=== PATIENT | female | born 1950 | race Caucasian/White ===

== ENCOUNTER 2017-06-06 17:21 | Emergency (ER) | payer MEDICARE, MEDICAID ==
[2017-06-06 19:14] LABS: HEMATOCRIT 30.4 % (41.0-60); LYMPHOCYTE ABSOLUTE 0.4 Th/cmm (1.5-3.0); MEAN CORPUSCULAR HEMOGLOBIN 32.6 pg (27.0-31.0); MONOCYTE ABSOLUTE 1.1 Th/cmm (0.3-1.0); NEUTROPHILE ABSOLUTE 3.8 Th/cmm (1.8-8.0); PLATELET COUNT 139 Th/cmm (150-400); RED BLOOD COUNT 3.07 Mil/cmm (3.80-5.20); RED CELL DISTRIBUTION WIDTH 28.6 % (11.5-20.0); WHITE BLOOD COUNT 5.3 Th/cmm (4.8-10.8)
--- NOTE | 2017-06-06 19:20 | ED Physician Chart ---
ED Chief Complaint/HPI - Patient Information Date Seen:: 06/06/17 Time Seen:: 19:15 Chief Complaint:: Ascites History of Present Illness:: 67 yo female was brought in from a SNF for paracentesis. The patient had ascites due to HCV and liver cirrhosis. The patient's PCP did not have privileges here and instructed the patient to come to ER and return to SNF after the paracentesis. The patient was awake and alert. She had notably jaundice. The patient's son stated that the patient was a candidate for liver transplant and was under the care by a liver specialist. Allergies:: Allergies Allergy/AdvReac Type Severity Reaction Status Date / Time No Known Allergies Allergy Verified 06/06/17 17:41 Vitals:: Vital Signs - 8 hr 06/06/17 17:41 Temp 97.5 F HR 86 RR 16 BP 113/67 O2 Sat % 98 ED Review of Systems - Review of Systems General/Constitutional: No fever, No chills, Weakness Skin: No bruising, Other (jaundice) Head: No headache Eyes: No loss of vision Neck: No neck pain Cardio Vascular: No chest pain, edema Pulmonary: SOB GI: Other (Significant abdominal distention) Musculoskeletal: No bone or joint pain ED Past Medical History - Past Medical History Past Medical History: ESRD, Other (HCV, dental caries) Social History: Smoker, No Alcohol, Illicit Drug Use (marijuana) Surgical History: Cholecystectomy, Family Medical History - Family Member Mother History Unknown: Yes ED Physical Exam - Physical Examination General/Constitutional: Awake, Alert Head: Atraumatic Eyes: PERRL, EOMI Other Eyes comments:: conjunctiva jaundice Other Skin comments:: jaundice Neck: No nuchal rigidity Respiratory: Clear to Auscultation, No Wheeze/Rhonchi/Rales Cardio Vascular: RRR, No murmur, gallop, rubs, NL S1 S2 Other GI comments:: severe abdominal distention Extremities: normal strength in all extremities Neuro/Psych: No focal deficits ED Assessment - Assessment General Assessment: Ascites Critical Care Time: 30 min Excludes all billable procedures: Yes This condition life threatening/high prob of deterioration: No - Procedures Procedures:: Paracentesis at LLQ, 6L fluid removed. Patient tolerated the procedure well. Informed Consent: Procedure/risk/benefits explained by MD: Yes ED Septic Shock - . Is Septic Shock (SBP<90, OR Lactate>4 mmol\L) present?: No - <6hrs of presentation: Vital Signs: Vital Signs - 8 hr 06/06/ 17:41 Temp 97.5 F HR 86 RR 16 BP 113/67 O2 Sat % 98 ED Reassessment (Disposition) - Reassessment Reassessment Condition:: Improved - Aftercare/Follow up Instructions Aftercare/Follow-Up Instructions:: Counseled pt regarding lab results/diagnosis & need follow up, Refer to Discharge Instructions - Patient Disposition Discharge/Transfer:: Residential Care - SNF ED Discharge Plan - Patient Disposition Admit/Discharge/Transfer: Discharge/Transfered to SNF Condition at Disposition: Stable Instructions: Ascites Additional Instructions: AFTER CARE POST PARACENTESIS, FOLLOW UP WITH PRIMARY CARE DOCTOR, GO BACK TO EMERGENCY ROOM IF SYMPTOMS WORSEN.
[2017-06-06 19:26] LABS: INR 1.23 (0.5-1.4); PROTHROMBIN TIME (TEST) 12.9 SECONDS (9.5-11.5)
[2017-06-06 19:30] LABS: ALB/GLOB RATIO 0.5 (1.0-1.8); ALBUMIN 2.3 gm/dL (3.7-5.3); ALKALINE PHOSPHATASE 84 U/L (34-104); ANION GAP 8.9 (7.0-16.0); BILIRUBIN,TOTAL 2.3 mg/dL (0.3-1.0); BUN - UREA NITROGEN 32 mg/dL (7-25); CALCIUM SERUM 8.8 mg/dL (8.6-10.3); CHLORIDE 92 mEq/L (98-107); CREATININE - SERUM 0.9 mg/dL (0.6-1.2); GFR AFRICAN-AMERICAN > 60.0 ml/min (>90); GFR NON AFRICAN-AMERICAN > 60.0 ml/min; GLUCOSE 126 mg/dL (70-105); POTASSIUM SERUM 3.9 mEq/L (3.5-5.1); SGOT 26 U/L (13-39); SGPT/ALT 26 U/L (7-52); SODIUM SERUM 124 mEq/L (136-145); TOTAL PROTEIN,SERUM 7.3 gm/dL (6.0-8.3)
[2017-06-06] MEDS ORDERED: LIDOCAINE IV ONE (19:40)
[2017-06-06 19:42] LABS: LYMPHOCYTE 9 % (20-50); MONOCYTE 18 % (2-10); NEUTROPHILS 73 % (40-80); PLATELET ESTIMATE SLIGHT DECREASED (NORMAL)
--- NOTE | 2017-06-07 08:39 | Diagnostic Imaging Report ---
Ultrasound-guided paracentesis HISTORY: Ascites COMPARISON: None FINDINGS: Ultrasound guided paracentesis was performed by the primary physician Dr. Fuller. 6 L of alie-colored fluid was drained from the left lower quadrant. Please refer to procedural report for complete details. IMPRESSION: Ultrasound guided paracentesis as detailed above.
== END 2017-06-06 22:05 ==
LOC: ER 17:21
DX: R18.8 Other ascites (principal); N18.6 End stage renal disease; Z87.891 Personal history of nicotine dependence
CPT/HCPCS: 36415-UA; 76942-TC; 80053-TC; 82150-TC; 82945-TC; 83615-TC; 83690-TC; 83986-90; 84157-TC; 85007-TC; 85027-TC; 85610-TC; 89051-TC; 96375; 96376; Z7502

== ENCOUNTER 2017-06-17 12:48 | Inpatient (IN) | payer MEDICARE, MEDICAID ==
--- NOTE | 2017-06-17 13:50 | ED Physician Chart ---
ED Chief Complaint/HPI - Patient Information Date Seen:: 06/17/17 Time Seen:: 13:00 Chief Complaint:: Abdominal Pain History of Present Illness:: onset x 2 days of intermittent, crampy, diffuse abdominal pain and distention; pt denies H/As, S/T, neck pain, C/P, SOB, A/N/V/D/C, fever, chills, or urinary s /s Allergies:: Allergies Allergy/AdvReac Type Severity Reaction Status Date / Time No Known Allergies Allergy Verified 06/06/17 17:41 Vitals:: Vital Signs - 8 hr 06/17/17 12:59 Temp 97.8 F HR 95 RR 18 BP 100/52 O2 Sat % 97 Historian:: Patient, EMS Review:: Nurse's Note Reviewed, EMS run form Reviewed ED Review of Systems - Review of Systems General/Constitutional: No fever, No chills, No weight loss, No weakness, No diaphoresis, No edema, No loss of appetite Skin: No skin lesions, No rash, No bruising Head: No headache, No light-headedness Eyes: No loss of vision, No pain, No diplopia ENT: No earache, No nasal drainage, No sore throat, No tinnitus Neck: No neck pain, No swelling, No thyromegaly, No stiffness, No mass noted Cardio Vascular: No chest pain, No palpitations, No PND, No orthopnea, No edema Pulmonary: No SOB, No cough, No sputum, No wheezing GI: Nausea, Vomiting, Diarrhea, Pain, No melena, No hematochezia, No constipation, No hematemesis G/U: No dysuria, No frequency, No hematuria, No nacturia Parts Professional: No vaginal discharge, No abnormal vaginal bleed, No contraction Musculoskeletal: No bone or joint pain, No back pain, No muscle pain Endocrine: No polyuria, No polydipsia Psychiatric: No prior psych history, No depression, No anxiety, No suicidal ideation, No homicidal ideation, No auditory hallucination, No visual hallucination Hematopoietic: No bruising, No lymphadenopathy Allergic/Immuno: No urticaria, No angioedema Neurological: No syncope, No focal symptoms, No weakness, No paresthesia, No headache, No seizure, No dizziness, No confusion, No vertigo ED Past Medical History - Past Medical History Obtainable: Yes Past Medical History: PUD/GERD, Other (Cirrhosis; Hepatitis C) Family History: HTN Social History: Non Smoker, No Alcohol, No Drug Use, Single, Care Facility Surgical History: None Psychiatricy History: None Medication: Reviewed Family Medical History - Family Member Mother History Unknown: Yes ED Physical Exam - Physical Examination General/Constitutional: Awake, Well-developed, well-nourished, Alert, No distress, GCS 15, Non-toxic appearing, Ambulatory Head: Atraumatic Eyes: Lids, conjuctiva normal, PERRL, EOMI Skin: Nl inspection, No rash, No skin lesions, No ecchymosis, Well hydrated, No lymphadenopathy ENMT: External ears, nose nl, TM canals nl, Nasal exam nl, Lips, teeth, gums nl , Oropharynx nl, Tonsils nl Neck: Nontender, Full ROM w/o pain, No JVD, No nuchal rigidity, No bruit, No mass, No stridor Respiratory: Nl effort/Exclusion, Clear to Auscultation, No Wheeze/Rhonchi/Rales Cardio Vascular: RRR, No murmur, gallop, rubs, NL S1 S2, Carotid/Femoral/Distal pulses equal bilaterally GI: No tenderness/rebounding/guarding, No organomegaly, No hernia, Normal BS's, No mass/bruits, No McBurney tenderness Other GI comments:: + Distention 2ndary to Ascites : No CVA tenderness Extremities: No tenderness or effusion, Full ROM, normal strength in all extremities, No edema, Normal digits & nails Neuro/Psych: Alert/oriented, DTR's symmetric, Normal sensory exam, Normal motor strength, Judgement/insight normal, Mood normal, Normal gait, No focal deficits Misc: Normal back, No paraspinal tenderness ED Labs/Radiology/EKG Results - Lab Results Comments:: Na+: 119; BUN: 44; H/H: 9.5/27.8; U/A: + Pyuria - Radiology Results Comments:: U/S: + 3 liters of Ascites fluid - EKG Interpretations EKG Time:: 14:03 Rate & Rhythm: 69; NSR Comments:: non-specific st-t changes ED Septic Shock - . Is Septic Shock (SBP<90, OR Lactate>4 mmol\L) present?: No - <6hrs of presentation: Vital Signs: Vital Signs - 8 hr 06/17/17 12:59 Temp 97.8 F HR 95 RR 18 BP 100/52 O2 Sat % 97 ED Reassessment (Disposition) - Reassessment Reassessment Condition:: Improved - Diagnosis Diagnosis:: Cirrhosis; Ascites; Hyponatremia; Dehydration; UTI; Abdominal Pain - Aftercare/Follow up Instructions Aftercare/Follow-Up Instructions:: Counseled pt regarding lab results/diagnosis & need follow up, Counseled pt & family regarding lab results/diagnosis & need follow up - Patient Disposition Discharge/Transfer:: Acute Care w/in this hosp Accepting Physician:: Dr. Baker Time Called:: 1500 Time Responded:: 15:00 Admitted to:: Telemetry Spoke to:: Dr. Baker Admitting Medical Physician:: Dr. Baker Condition at Disposition:: Stable, Improved
[2017-06-17 14:10] LABS: % BASOPHILS 0.2 % (0.0-2.0); % EOSINOPHILS 0.7 % (0.0-5.0); % LYMPHOCYTES 8.8 % (20.0-50.0); % MONOCYTES 12.6 % (2.0-10.0); % NEUTROPHILS 77.7 % (40.0-80.0); EOSINOPHILE ABSOLUTE 0.1 Th/cmm (0.1-0.4); HEMATOCRIT 27.8 % (41.0-60); HEMOGLOBIN 9.5 gm/dL (12-16); LYMPHOCYTE ABSOLUTE 0.6 Th/cmm (1.5-3.0); MEAN CELL VOLUME 100.2 fl (81-100); MEAN CORPUSCULAR HEMOGLOBIN 34.2 pg (27.0-31.0); MEAN CORPUSCULAR HGB CONC 34.1 pg (28.0-36.0); MEAN PLATELET VOLUME 7.1 fl; MONOCYTE ABSOLUTE 0.9 Th/cmm (0.3-1.0); NEUTROPHILE ABSOLUTE 5.6 Th/cmm (1.8-8.0); PLATELET COUNT 159 Th/cmm (150-400); RED BLOOD COUNT 2.78 Mil/cmm (3.80-5.20); RED CELL DISTRIBUTION WIDTH 23.9 % (11.5-20.0)
[2017-06-17 14:12] LABS: WHITE BLOOD COUNT 7.2 Th/cmm (4.8-10.8)
[2017-06-17 14:18] LABS: INR 1.37 (0.5-1.4); PROTHROMBIN TIME (TEST) 14.5 SECONDS (9.5-11.5)
[2017-06-17 14:23] LABS: ALB/GLOB RATIO 0.5 (1.0-1.8); ALBUMIN 2.1 gm/dL (3.7-5.3); ALKALINE PHOSPHATASE 85 U/L (34-104); ANION GAP 8.3 (7.0-16.0); BILIRUBIN,TOTAL 2.1 mg/dL (0.3-1.0); BUN - UREA NITROGEN 44 mg/dL (7-25); CALCIUM SERUM 8.1 mg/dL (8.6-10.3); CARBON DIOXIDE 27.3 mEq/L (21.0-31.0); CHLORIDE 88 mEq/L (98-107); CHOLESTEROL 105 mg/dL (<200); CREATININE KINASE 77 U/L (30-223); GFR AFRICAN-AMERICAN > 60.0 ml/min (>90); GFR NON AFRICAN-AMERICAN 58.6 ml/min; GLUCOSE 129 mg/dL (70-105); HDL -HIGH DENSITY LIPOPROTEIN 38 mg/dL (23-92); POTASSIUM SERUM 4.6 mEq/L (3.5-5.1); SGOT 38 U/L (13-39); SGPT/ALT 27 U/L (7-52); TOTAL PROTEIN,SERUM 6.8 gm/dL (6.0-8.3); TRIGLYCERIDES 50 mg/dL (<150)
[2017-06-17 14:38] LABS: SODIUM SERUM 119 mEq/L (136-145)
[2017-06-17 14:46] LABS: URINE MICROSCOPIC INDICATED? YES; URINE SOURCE CLEAN C
[2017-06-17 14:51] LABS: URINE BILIRUBIN NEGATIVE (NEGATIVE); URINE BLOOD MODERATE (NEGATIVE); URINE GLUCOSE (UA) NEGATIVE (NEGATIVE); URINE KETONE NEGATIVE (NEGATIVE); URINE LEUKOCYTE ESTERASE NEGATIVE (NEGATIVE); URINE NITRATE NEGATIVE (NEGATIVE); URINE PROTEIN NEGATIVE (NEGATIVE); URINE UROBILINOGEN 0.2 E.U./dL (0.2 - 1.0)
[2017-06-17 14:52] LABS: URINE COLOR ORANGE
[2017-06-17 14:53] LABS: URINE CLARITY HAZY (CLEAR)
[2017-06-17 14:59] LABS: URINE BACTERIA 1+ /hpf (NONE SEEN); URINE EPITHELIAL CELLS MODERATE /lpf (FEW)
[2017-06-17] MEDS ORDERED: Azithromycin 500 MG in Sodium Chloride 0.9% 250 ML IV ONE (19:15)
[2017-06-18] MEDS: Hydrocodone/APAP 5mg/325mg Tab PO PRN ×2 (00:51→21:33)
[2017-06-18 06:18] LABS: EOSINOPHILE ABSOLUTE 0.1 Th/cmm (0.1-0.4); HEMATOCRIT 29.7 % (41.0-60); HEMOGLOBIN 9.9 gm/dL (12-16); LYMPHOCYTE ABSOLUTE 0.8 Th/cmm (1.5-3.0); MEAN CELL VOLUME 100.6 fl (81-100); MEAN CORPUSCULAR HEMOGLOBIN 33.4 pg (27.0-31.0); MEAN CORPUSCULAR HGB CONC 33.2 pg (28.0-36.0); MEAN PLATELET VOLUME 7.2 fl; MONOCYTE ABSOLUTE 1.5 Th/cmm (0.3-1.0); NEUTROPHILE ABSOLUTE 5.5 Th/cmm (1.8-8.0); PLATELET COUNT 166 Th/cmm (150-400); RED BLOOD COUNT 2.95 Mil/cmm (3.80-5.20); RED CELL DISTRIBUTION WIDTH 24.3 % (11.5-20.0); WHITE BLOOD COUNT 7.9 Th/cmm (4.8-10.8)
[2017-06-18 06:32] LABS: INR 1.15 (0.5-1.4); PROTHROMBIN TIME (TEST) 12.1 SECONDS (9.5-11.5)
[2017-06-18 06:36] LABS: ALB/GLOB RATIO 0.5 (1.0-1.8); ALBUMIN 2.1 gm/dL (3.7-5.3); ALKALINE PHOSPHATASE 90 U/L (34-104); ANION GAP 8.5 (7.0-16.0); BILIRUBIN,TOTAL 1.8 mg/dL (0.3-1.0); BUN - UREA NITROGEN 45 mg/dL (7-25); CALCIUM SERUM 8.1 mg/dL (8.6-10.3); CARBON DIOXIDE 28.7 mEq/L (21.0-31.0); CHLORIDE 88 mEq/L (98-107); CREATININE - SERUM 0.9 mg/dL (0.6-1.2); GFR AFRICAN-AMERICAN > 60.0 ml/min (>90); GFR NON AFRICAN-AMERICAN > 60.0 ml/min; GLUCOSE 89 mg/dL (70-105); POTASSIUM SERUM 4.2 mEq/L (3.5-5.1); SGOT 37 U/L (13-39); SGPT/ALT 26 U/L (7-52); SODIUM SERUM 121 mEq/L (136-145); TOTAL PROTEIN,SERUM 6.8 gm/dL (6.0-8.3)
[2017-06-18 06:53] LABS: BAND NEUTROPHILE 2 % (0-10); LYMPHOCYTE 13 % (20-50); MONOCYTE 9 % (2-10); NEUTROPHILS 76 % (40-80); TOTAL CELLS COUNTED 100
[2017-06-18 06:54] LABS: ANISOCYTOSIS 1+
--- NOTE | 2017-06-18 07:43 | Diagnostic Imaging Report ---
Abdominal ultrasound HISTORY: Pain, ascites Exam demonstrates a moderate to large amount of ascites. Limited views of the liver demonstrates a decrease in size of irregular contour. Findings may be associated with cirrhosis. No obvious focal lesions. The gallbladder could not be visualized. If the gallbladder has not been removed and the patient is fasting, nonvisualization is considered abnormal and suggests underlying gallbladder disease. Clinical correlation and correlation with patient history needed. If gallbladder disease is suspected, a radionuclide biliary scan would provide for further assessment of gallbladder function. The common bile duct could not be seen. No intrahepatic biliary dilatation. The pancreas cannot be seen due to bowel gas. No focal renal lesions. No hydronephrosis. Suboptimal delineation of the spleen. No other obvious retroperitoneal or intra-abdominal abnormalities. IMPRESSION: 1. Limited exam due to patient motion and considerable bowel gas 2. Moderate to large amount of ascites 3. Nonvisualization of the gallbladder. If the gallbladder has not been removed and the patient is fasting, nonvisualization is considered abnormal and suggests underlying gallbladder disease. Clinical correlation and correlation with patient's surgical history needed. If gallbladder disease is suspected, a radionuclide biliary scan would provide for further assessment of gallbladder function.
--- NOTE | 2017-06-18 08:16 | Diagnostic Imaging Report ---
Exam: Portable examination of chest HISTORY: Shortness of breath Findings: Portable summation of chest at 0753 hours reviewed. The study demonstrates mild congestion. There is evidence of blunting left costophrenic angle with most likely due to atelectasis small pleural effusion cannot be excluded. Bony thorax remarkable for degenerative osteopenia. Fusion of lower cervical spine appreciated. IMPRESSION: Mild congestion Atelectatic changes left base, versus a small left pleural effusion follow-up examination is recommended. Infiltrate cannot be excluded.
[2017-06-18] MEDS ORDERED: SOFOSBUVIR PO SCH (09:00)
[2017-06-18] MEDS ORDERED: LEDIPASVIR PO SCH (09:00)
[2017-06-18] MEDS ORDERED: Multivitamin Inj 10 ML, Thiamine HCL 100 MG, Magnesium Sulfate 2 GM, Folic Acid 1 MG in... IV SCH (09:00)
[2017-06-18] MEDS: Ferrous Sulfate 325 MG TAB PO SCH (09:34)
[2017-06-18] MEDS: Pantoprazole 40 mg EC Tab PO SCH (09:34)
[2017-06-18] MEDS: Lactulose 10 Gm/15 mL 30mL UDC PO SCH ×2 (09:34→17:13)
--- NOTE | 2017-06-18 12:17 | Diagnostic Imaging Report ---
Exam: Paracentesis HISTORY: Ascites. Findings: After obtaining an informed consent the patient was prepped and draped distal fashion. Utilizing ultrasonographic guidance right lateral lower quadrant was catheterized approximately 5.3 L of serous fluid was obtained. Patient tolerated procedure well without complications IMPRESSION successful right lower quadrant paracentesis. 5.3 views of the uterus of fluid obtained.
[2017-06-18] MEDS ORDERED: VTE Chemical Prophylaxis Screen/Admission MC PRN (12:30)
[2017-06-18 13:21] LABS: BF TOTAL PROTEIN < 3.0 g/dL
--- NOTE | 2017-06-18 15:13 | History and Physical ---
History of Present Illness - HPI Vital Signs: Last Vital Signs Temp 97.1 F 06/18/17 11:40 Pulse 67 06/18/17 11:40 Resp 20 06/18/17 12:00 BP 101/58 06/18/17 11:40 Pulse Ox 97 06/18/17 11:40 Family Medical History - Family Member Mother History Unknown: Yes - Medications Home Medications: Home Medication Medication Instructions Recorded Type Ascorbic Acid [Vitamin C] 500 mg PO DAILY 06/06/17 History Ferrous Sulfate [Mireya-Time] 325 mg PO DAILY 06/06/17 History Furosemide [Lasix] 40 mg PO DAILY 06/06/17 History Hydrocodone/Acetaminophen [Allouez 1 tab PO TID PRN 06/06/17 History 325 mg-5 mg*] Lactulose 10 gm PO BID 06/06/17 History Ledipasvir/Sofosbuvir [Harvoni 1 each PO DAILY 06/06/17 History 90-400 mg Tablet] Lorazepam [Ativan] 0.5 mg PO BID 06/06/17 History Omeprazole 20 mg PO DAILY 06/06/17 History Spironolactone [Aldactone*] 100 mg PO DAILY 06/06/17 History Temazepam [Restoril*] 7.5 mg PO HS PRN 06/06/17 History Tuberculin [Aplisol] 0.1 ml TD ONCE 06/06/17 History - Allergies Allergies/Adverse Reactions: Allergies Allergy/AdvReac Type Severity Reaction Status Date / Time No Known Allergies Allergy Verified 06/06/17 17:41 - Lab Results All Lab Results last 24 hours: Laboratory Results - last 24 hr 06/18/17 06/18/17 06/18/17 05:30 05:30 05:30 WBC 7.9 RBC 2.95 L Hgb 9.9 L Hct 29.7 L MCV 100.6 H MCH 33.4 H MCHC Differential 33.2 RDW 24.3 H Plt Count 166 MPV 7.2 Band Neutrophils % 2 Neutrophils (Manual) 76 Lymphocytes 13 L Monocytes 9 Anisocytosis 1+ PT 12.1 H INR 1.15 PTT (Actin FS) 28.9 Sodium Potassium Chloride Carbon Dioxide Anion Gap BUN Creatinine Est GFR ( Amer) Est GFR (Non-Af Amer) BUN/Creatinine Ratio Glucose Calcium Total Bilirubin AST ALT Alkaline Phosphatase Ammonia 72 H Total Protein Albumin Globulin Albumin/Globulin Ratio Fluid Glucose Fluid Total Protein Fluid LDH 06/18/17 06/18/17 05:30 10:45 WBC RBC Hgb Hct MCV MCH MCHC Differential RDW Plt Count MPV Band Neutrophils % Neutrophils (Manual) Lymphocytes Monocytes Anisocytosis PT INR PTT (Actin FS) Sodium 121 L Potassium 4.2 Chloride 88 L Carbon Dioxide 28.7 Anion Gap 8.5 BUN 45 H Creatinine 0.9 Est GFR ( Amer) > 60.0 Est GFR (Non-Af Amer) > 60.0 BUN/Creatinine Ratio 50.0 Glucose 89 Calcium 8.1 L Total Bilirubin 1.8 H AST 37 ALT 26 Alkaline Phosphatase 90 Ammonia Total Protein 6.8 Albumin 2.1 L Globulin 4.7 Albumin/Globulin Ratio 0.5 L Fluid Glucose 110.0 Fluid Total Protein < 3.0 Fluid LDH 36
[2017-06-18 16:03] LABS: BF APPEARANCE HAZY; BF COLOR YELLOW; BODY FLUID SOURCE ASCITIC
[2017-06-18 16:04] LABS: BF MONOCYTES 11 %; BF RBC 2187 /cumm; BF WBC 4.4 /cumm
--- NOTE | 2017-06-18 20:10 | History & Physical ---
ADMIT DATE: 06/17/2017 HISTORY OF PRESENT ILLNESS: She was admitted for intermittent abdominal pain and abdominal distention, history of cirrhosis of the liver and ascites. The patient is a poor historian, but the patient does have a history of medical problems including cirrhosis of the liver and hepatitis C and family history of hypertension. PHYSICAL EXAMINATION: GENERAL: The patient is awake, alert, well-oriented female, not in acute distress. VITAL SIGNS: Noted. HEAD: Normal. ENT: Normal. LUNGS: Clear. ABDOMEN: Soft. Bowel sounds are heard, distended with ascites. LABORATORY DATA: BUN was high at 44. Hemoglobin 9.5, hematocrit was 27. Sodium was very low 119. DIAGNOSES: Severe hyponatremia, cirrhosis of the liver, ascites, dehydration, urinary tract infection, and abdominal pain. PLAN: The patient is going to be admitted and given antibiotics. I will have Dr. Crane see the patient. I will follow the patient. JOB# [id number]
[2017-06-18] MEDS: Azithromycin 500 mg in 0.9% NS 250 mL IV SCH (20:48)
[2017-06-19 06:17] LABS: EOSINOPHILE ABSOLUTE 0.1 Th/cmm (0.1-0.4); HEMATOCRIT 28.2 % (41.0-60); HEMOGLOBIN 9.4 gm/dL (12-16); MEAN CELL VOLUME 100.7 fl (81-100); MEAN CORPUSCULAR HEMOGLOBIN 33.7 pg (27.0-31.0); MEAN CORPUSCULAR HGB CONC 33.5 pg (28.0-36.0); MONOCYTE ABSOLUTE 1.6 Th/cmm (0.3-1.0); NEUTROPHILE ABSOLUTE 5.4 Th/cmm (1.8-8.0); PLATELET COUNT 137 Th/cmm (150-400); RED CELL DISTRIBUTION WIDTH 23.5 % (11.5-20.0); WHITE BLOOD COUNT 8.1 Th/cmm (4.8-10.8)
[2017-06-19 06:43] LABS: ALBUMIN 1.9 gm/dL (3.7-5.3); ANION GAP 5.3 (7.0-16.0); BUN - UREA NITROGEN 41 mg/dL (7-25); CALCIUM SERUM 8.1 mg/dL (8.6-10.3); CARBON DIOXIDE 28.1 mEq/L (21.0-31.0); CHLORIDE 91 mEq/L (98-107); CREATININE - SERUM 0.8 mg/dL (0.6-1.2); GFR AFRICAN-AMERICAN > 60.0 ml/min (>90); GFR NON AFRICAN-AMERICAN > 60.0 ml/min; GLUCOSE 85 mg/dL (70-105); POTASSIUM SERUM 4.4 mEq/L (3.5-5.1); TOTAL PROTEIN,SERUM 6.3 gm/dL (6.0-8.3)
[2017-06-19 06:44] LABS: ALB/GLOB RATIO 0.4 (1.0-1.8); ALKALINE PHOSPHATASE 75 U/L (34-104); BILIRUBIN,TOTAL 1.7 mg/dL (0.3-1.0); MAGNESIUM 2.2 mg/dL (1.9-2.7); SGOT 32 U/L (13-39); SGPT/ALT 23 U/L (7-52); URIC ACID 10.2 mg/dL (2.3-6.6)
[2017-06-19 06:56] LABS: SODIUM SERUM 120 mEq/L (136-145)
[2017-06-19] MEDS: Lactulose 10 Gm/15 mL 30mL UDC PO SCH ×3 (08:50→17:07)
[2017-06-19] MEDS: Ferrous Sulfate 325 MG TAB PO SCH (08:50)
[2017-06-19] MEDS: Pantoprazole 40 mg EC Tab PO SCH (08:51)
[2017-06-19] MEDS ORDERED: Pneumococcal Vaccine 0.5 mL Vial IM ONE (09:00)
[2017-06-19] MEDS ORDERED: Multivitamin Inj 10 ML, Thiamine HCL 100 MG, Magnesium Sulfate 2 GM, Folic Acid 1 MG in... IV ONE (09:00)
--- NOTE | 2017-06-19 09:10 | General Progress Note ---
Subjective - Review of Systems Events since last encounter: patient with c/o abd pain with h/o cirrhosis Objective - Results Result Diagrams: 06/19/17 06:05 06/19/17 06:05 Recent Labs: Laboratory Last Values WBC 8.1 Th/cmm (4.8-10.8) 06/19/17 06:05 RBC 2.80 Mil/cmm (3.80-5.20) L 06/19/17 06:05 Hgb 9.4 gm/dL (12-16) L 06/19/17 06:05 Hct 28.2 % (41.0-60) L 06/19/17 06:05 MCV 100.7 fl (81-100) H 06/19/17 06:05 MCH 33.7 pg (27.0-31.0) H 06/19/17 06:05 MCHC Differential 33.5 pg (28.0-36.0) 06/19/17 06:05 RDW 23.5 % (11.5-20.0) H 06/19/17 06:05 Plt Count 137 Th/cmm (150-400) L 06/19/17 06:05 MPV 7.0 fl 06/19/17 06:05 Neutrophils % 77.7 % (40.0-80.0) 06/17/17 13:45 Band Neutrophils % 2 % (0-10) 06/18/17 05:30 Lymphocytes % 8.8 % (20.0-50.0) L 06/17/17 13:45 Monocytes % 12.6 % (2.0-10.0) H 06/17/17 13:45 Eosinophils % 0.7 % (0.0-5.0) 06/17/17 13:45 Basophils % 0.2 % (0.0-2.0) 06/17/17 13:45 Neutrophils (Manual) 76 % (40-80) 06/18/17 05:30 Lymphocytes 13 % (20-50) L 06/18/17 05:30 Monocytes 9 % (2-10) 06/18/17 05:30 Anisocytosis 1+ 06/18/17 05:30 PT 12.1 SECONDS (9.5-11.5) H 06/18/17 05:30 INR 1.15 (0.5-1.4) 06/18/17 05:30 PTT (Actin FS) 28.9 SECONDS (26.0-38.0) 06/18/17 05:30 Sodium 120 mEq/L (136-145) L 06/19/17 06:05 Potassium 4.4 mEq/L (3.5-5.1) 06/19/17 06:05 Chloride 91 mEq/L (98-107) L 06/19/17 06:05 Carbon Dioxide 28.1 mEq/L (21.0-31.0) 06/19/17 06:05 Anion Gap 5.3 (7.0-16.0) L 06/19/17 06:05 BUN 41 mg/dL (7-25) H 06/19/17 06:05 Creatinine 0.8 mg/dL (0.6-1.2) 06/19/17 06:05 Est GFR ( Amer) > 60.0 ml/min (>90) 06/19/17 06:05 Est GFR (Non-Af Amer) > 60.0 ml/min 06/19/17 06:05 BUN/Creatinine Ratio 51.3 06/19/17 06:05 Glucose 85 mg/dL (70-105) 06/19/17 06:05 Uric Acid 10.2 mg/dL (2.3-6.6) H 06/19/17 06:05 Calcium 8.1 mg/dL (8.6-10.3) L 06/19/17 06:05 Magnesium 2.2 mg/dL (1.9-2.7) 06/19/17 06:05 Total Bilirubin 1.7 mg/dL (0.3-1.0) H 06/19/17 06:05 AST 32 U/L (13-39) 06/19/17 06:05 ALT 23 U/L (7-52) 06/19/17 06:05 Alkaline Phosphatase 75 U/L (34-104) 06/19/17 06:05 Ammonia 72 umol/L (16-53) H 06/18/17 05:30 Creatine Kinase 77 U/L (30-223) 06/17/17 13:45 Troponin I 0.01 ng/mL (0.01-0.05) 06/17/17 13:45 B-Natriuretic Peptide 49.9 pg/mL (5.0-100.0) 06/17/17 13:45 Total Protein 6.3 gm/dL (6.0-8.3) 06/19/17 06:05 Albumin 1.9 gm/dL (3.7-5.3) L 06/19/17 06:05 Globulin 4.4 gm/dL 06/19/17 06:05 Albumin/Globulin Ratio 0.4 (1.0-1.8) L 06/19/17 06:05 Triglycerides 50 mg/dL (<150) 06/17/17 13:45 Cholesterol 105 mg/dL (<200) 06/17/17 13:45 LDL Cholesterol Direct 64 mg/dL (75-193) L 06/17/17 13:45 HDL Cholesterol 38 mg/dL (23-92) 06/17/17 13:45 Amylase 78 U/L (29-103) 06/17/17 13:45 Serum , Qual NEGATIVE (NEGATIVE) 06/17/17 13:45 Urine Source CLEAN C 06/17/17 14:05 Urine Color ORANGE 06/17/17 14:05 Urine Clarity HAZY (CLEAR) 06/17/17 14:05 Urine pH 6.0 (4.6 - 8.0) 06/17/17 14:05 Ur Specific [place] 1.015 (1.005-1.030) 06/17/17 14:05 Urine Protein NEGATIVE mg/dL (NEGATIVE) 06/17/17 14:05 Urine Glucose (UA) NEGATIVE mg/dL (NEGATIVE) 06/17/17 14:05 Urine Ketones NEGATIVE mg/dL (NEGATIVE) 06/17/17 14:05 Urine Blood MODERATE (NEGATIVE) H 06/17/17 14:05 Urine Nitrate NEGATIVE (NEGATIVE) 06/17/17 14:05 Urine Bilirubin NEGATIVE (NEGATIVE) 06/17/17 14:05 Urine Urobilinogen 0.2 E.U./dL (0.2 - 1.0) 06/17/17 14:05 Ur Leukocyte Esterase NEGATIVE (NEGATIVE) 06/17/17 14:05 Urine RBC 5-10 /hpf (0-5) H 06/17/17 14:05 Urine WBC 6-10 /hpf (0-5) H 06/17/17 14:05 Ur Epithelial Cells MODERATE /lpf (FEW) 06/17/17 14:05 Urine Bacteria 1+ /hpf (NONE SEEN) H 06/17/17 14:05 Urine Test NEGATIVE 06/17/17 14:05 Fluid Source ASCITIC 06/18/17 10:45 Fluid Color YELLOW 06/18/17 10:45 Fluid Appearance HAZY 06/18/17 10:45 Fluid WBC 4.4 /cumm 06/18/17 10:45 Fluid RBC 2187 /cumm 06/18/17 10:45 Fluid Neutrophils 46 % 06/18/17 10:45 Fluid Lymphocytes 43 % 06/18/17 10:45 Fluid Monocytes 11 % 06/18/17 10:45 Fluid Glucose 110.0 mg/dL 06/18/17 10:45 Fluid Total Protein < 3.0 g/dL 06/18/17 10:45 Fluid LDH 36 U/L 06/18/17 10:45 - Physical Exam Vitals and I&O: Vital Signs Temp 97.8 F 06/19/17 04:00 Pulse 75 06/19/17 09:05 Resp 18 06/19/17 04:00 BP 113/74 06/19/17 09:05 Pulse Ox 98 06/19/17 04:00 Intake & Output 06/18/17 06/19/17 06/19/17 18:59 06:59 18:59 Intake Total 300 420 Balance 300 420 Weight (lbs) 63.594 kg 56.812 kg Intake: Intake, IV Amount 300 Azithromycin 500 mg In 250 Dextrose 5% 250 ml @ 250 mls/hr IV Q24HR [facility] Rx#: [id number] [id number] 1 gm In 50 Dextrose 5% 50 ml @ 100 mls/hr IV Q24HR [facility] Rx#: [id number] Oral 300 120 Other: # Voids 2 3 # Bowel Movements 1 Active Medications: Current Medications Acetaminophen/Hydrocodone Bitart (Pfeifer 5mg/325mg) 1 tab PO TID PRN PRN Reason: Pain (Moderate) Stop: 08/16/17 19:12 Last Admin: 06/18/17 21:33 Dose: 1 tab Ascorbic Acid (Vitamin C) 500 mg PO DAILY [facility] Stop: 08/17/17 08:59 Last Admin: 06/19/17 08:50 Dose: 500 mg Ferrous Sulfate (Iron) 325 mg PO DAILY [facility] Stop: 08/17/17 08:59 Last Admin: 06/19/17 08:50 Dose: 325 mg Ceftriaxone Sodium 1 gm/ (Dextrose) 50 mls @ 100 mls/hr IV Q24HR [facility] PRN Reason: Protocol Stop: 08/17/17 20:59 Last Infusion: 06/18/17 21:18 Dose: Infused Azithromycin 500 mg/ Dextrose 250 mls @ 250 mls/hr IV Q24HR [facility] Stop: 08/17/17 20:59 Last Infusion: 06/18/17 21:48 Dose: Infused Multivitamins/Minerals 10 ml/Thiamine HCl 100 mg/ Magnesium Sulfate 2 gm/ Folic Acid 1 mg / Sodium Chloride 1,015.2 mls @ 100 mls/hr IV X1 ONE Stop: 06/19/17 19:09 Lactulose (Cephulac) 10 gm PO BID [facility] Stop: 08/17/17 08:59 Last Admin: 06/19/17 08:50 Dose: 10 gm Lorazepam (Ativan) 0.5 mg PO BID [facility] PRN Reason: Protocol Stop: 08/17/17 08:59 Last Admin: 06/19/17 08:51 Dose: 0.5 mg Miscellaneous (Ledipasvir/Sofosbuvir [Harvoni 90-400 Mg Tablet]) 1 each PO DAILY [facility] Stop: 08/17/17 08:59 Miscellaneous ([employer] Prophylaxis Screen/ Admission) 1 ea [facility] PRN PRN PRN Reason: PROTOCOL Stop: 08/17/17 12:29 Pantoprazole Sodium (Protonix) 20 mg PO DAILY [facility] Stop: 08/17/17 08:59 Last Admin: 06/19/17 08:51 Dose: 20 mg Spironolactone (Aldactone) 25 mg PO BID [facility] Stop: 08/16/17 22:44 Last Admin: 06/19/17 09:05 Dose: Not Given Temazepam (Restoril) 7.5 mg PO HS PRN PRN Reason: Insomnia Last Admin: 06/19/17 02:34 Dose: 7.5 mg General: No acute distress HEENT: Atraumatic Neck: Supple, Thyromegaly Cardiovascular: Regular rate, Normal S1, Normal S2 Abdomen: Bowel sounds Assessment/Plan - Problem List Patient Problems: All Active Problems Abdominal pain (Acute) R10.9 Ascites (Acute) R18.8 Cirrhosis of liver (Acute) Dehydration (Acute) E86.0 Hyponatremia (Acute) E87.1 UTI (urinary tract infection) (Acute) - Plan Plan: as per order sheet
[2017-06-19] MEDS: Azithromycin 500 mg in 0.9% NS 250 mL IV SCH (21:10)
--- NOTE | 2017-06-19 21:37 | Internal Medicine Prog Note ---
Internal Medicine Subjective - Subjective Service Date: 06/19/17 Patient seen and examined:: with staff Patient is:: awake Per staff patient has:: tolerating meds Internal Medicine Objective - Results Result Diagrams: 06/19/17 06:05 06/19/17 06:05 Recent Labs: Laboratory Last Values WBC 8.1 Th/cmm (4.8-10.8) 06/19/17 06:05 RBC 2.80 Mil/cmm (3.80-5.20) L 06/19/17 06:05 Hgb 9.4 gm/dL (12-16) L 06/19/17 06:05 Hct 28.2 % (41.0-60) L 06/19/17 06:05 MCV 100.7 fl (81-100) H 06/19/17 06:05 MCH 33.7 pg (27.0-31.0) H 06/19/17 06:05 MCHC Differential 33.5 pg (28.0-36.0) 06/19/17 06:05 RDW 23.5 % (11.5-20.0) H 06/19/17 06:05 Plt Count 137 Th/cmm (150-400) L 06/19/17 06:05 MPV 7.0 fl 06/19/17 06:05 Neutrophils % 77.7 % (40.0-80.0) 06/17/17 13:45 Band Neutrophils % 2 % (0-10) 06/18/17 05:30 Lymphocytes % 8.8 % (20.0-50.0) L 06/17/17 13:45 Monocytes % 12.6 % (2.0-10.0) H 06/17/17 13:45 Eosinophils % 0.7 % (0.0-5.0) 06/17/17 13:45 Basophils % 0.2 % (0.0-2.0) 06/17/17 13:45 Neutrophils (Manual) 76 % (40-80) 06/18/17 05:30 Lymphocytes 13 % (20-50) L 06/18/17 05:30 Monocytes 9 % (2-10) 06/18/17 05:30 Anisocytosis 1+ 06/18/17 05:30 PT 12.1 SECONDS (9.5-11.5) H 06/18/17 05:30 INR 1.15 (0.5-1.4) 06/18/17 05:30 PTT (Actin FS) 28.9 SECONDS (26.0-38.0) 06/18/17 05:30 Sodium 120 mEq/L (136-145) L 06/19/17 06:05 Potassium 4.4 mEq/L (3.5-5.1) 06/19/17 06:05 Chloride 91 mEq/L (98-107) L 06/19/17 06:05 Carbon Dioxide 28.1 mEq/L (21.0-31.0) 06/19/17 06:05 Anion Gap 5.3 (7.0-16.0) L 06/19/17 06:05 BUN 41 mg/dL (7-25) H 06/19/17 06:05 Creatinine 0.8 mg/dL (0.6-1.2) 06/19/17 06:05 Est GFR ( Amer) > 60.0 ml/min (>90) 06/19/17 06:05 Est GFR (Non-Af Amer) > 60.0 ml/min 06/19/17 06:05 BUN/Creatinine Ratio 51.3 06/19/17 06:05 Glucose 85 mg/dL (70-105) 06/19/17 06:05 Uric Acid 10.2 mg/dL (2.3-6.6) H 06/19/17 06:05 Calcium 8.1 mg/dL (8.6-10.3) L 06/19/17 06:05 Magnesium 2.2 mg/dL (1.9-2.7) 06/19/17 06:05 Total Bilirubin 1.7 mg/dL (0.3-1.0) H 06/19/17 06:05 AST 32 U/L (13-39) 06/19/17 06:05 ALT 23 U/L (7-52) 06/19/17 06:05 Alkaline Phosphatase 75 U/L (34-104) 06/19/17 06:05 Ammonia 72 umol/L (16-53) H 06/18/17 05:30 Creatine Kinase 77 U/L (30-223) 06/17/17 13:45 Troponin I 0.01 ng/mL (0.01-0.05) 06/17/17 13:45 B-Natriuretic Peptide 49.9 pg/mL (5.0-100.0) 06/17/17 13:45 Total Protein 6.3 gm/dL (6.0-8.3) 06/19/17 06:05 Albumin 1.9 gm/dL (3.7-5.3) L 06/19/17 06:05 Globulin 4.4 gm/dL 06/19/17 06:05 Albumin/Globulin Ratio 0.4 (1.0-1.8) L 06/19/17 06:05 Triglycerides 50 mg/dL (<150) 06/17/17 13:45 Cholesterol 105 mg/dL (<200) 06/17/17 13:45 LDL Cholesterol Direct 64 mg/dL (75-193) L 06/17/17 13:45 HDL Cholesterol 38 mg/dL (23-92) 06/17/17 13:45 Amylase 78 U/L (29-103) 06/17/17 13:45 Serum , Qual NEGATIVE (NEGATIVE) 06/17/17 13:45 Urine Source CLEAN C 06/17/17 14:05 Urine Color ORANGE 06/17/17 14:05 Urine Clarity HAZY (CLEAR) 06/17/17 14:05 Urine pH 6.0 (4.6 - 8.0) 06/17/17 14:05 Ur Specific [place] 1.015 (1.005-1.030) 06/17/17 14:05 Urine Protein NEGATIVE mg/dL (NEGATIVE) 06/17/17 14:05 Urine Glucose (UA) NEGATIVE mg/dL (NEGATIVE) 06/17/17 14:05 Urine Ketones NEGATIVE mg/dL (NEGATIVE) 06/17/17 14:05 Urine Blood MODERATE (NEGATIVE) H 06/17/17 14:05 Urine Nitrate NEGATIVE (NEGATIVE) 06/17/17 14:05 Urine Bilirubin NEGATIVE (NEGATIVE) 06/17/17 14:05 Urine Urobilinogen 0.2 E.U./dL (0.2 - 1.0) 06/17/17 14:05 Ur Leukocyte Esterase NEGATIVE (NEGATIVE) 06/17/17 14:05 Urine RBC 5-10 /hpf (0-5) H 06/17/17 14:05 Urine WBC 6-10 /hpf (0-5) H 06/17/17 14:05 Ur Epithelial Cells MODERATE /lpf (FEW) 06/17/17 14:05 Urine Bacteria 1+ /hpf (NONE SEEN) H 06/17/17 14:05 Urine Test NEGATIVE 06/17/17 14:05 Fluid Source ASCITIC 06/18/17 10:45 Fluid Color YELLOW 06/18/17 10:45 Fluid Appearance HAZY 06/18/17 10:45 Fluid WBC 4.4 /cumm 06/18/17 10:45 Fluid RBC 2187 /cumm 06/18/17 10:45 Fluid Neutrophils 46 % 06/18/17 10:45 Fluid Lymphocytes 43 % 06/18/17 10:45 Fluid Monocytes 11 % 06/18/17 10:45 Fluid Glucose 110.0 mg/dL 06/18/17 10:45 Fluid Total Protein < 3.0 g/dL 06/18/17 10:45 Fluid LDH 36 U/L 06/18/17 10:45 - Physical Exam Vitals and I&O: Vital Signs Temp 97.7 F 06/19/17 19:53 Pulse 83 06/19/17 19:53 Resp 18 06/19/17 19:53 BP 99/66 06/19/17 19:53 Pulse Ox 100 06/19/17 19:53 Intake & Output 06/19/17 06/19/17 06/20/17 06:59 18:59 06:59 Intake Total 420 750 50 Balance 420 750 50 Weight (lbs) 125 lb 4 oz 125 lb 4 oz Intake: Intake, IV Amount 300 50 Azithromycin 500 mg In 250 Dextrose 5% 250 ml @ 250 mls/hr IV Q24HR [facility] Rx#: [id number] cefTRIAXone 1 gm In 50 50 Dextrose 5% 50 ml @ 100 mls/hr IV Q24HR [facility] Rx#: [id number] Oral 120 750 Other: # Voids 3 3 # Bowel Movements 0 Active Medications: Current Medications Acetaminophen/Hydrocodone Bitart ([place] 5mg/325mg) 1 tab PO TID PRN PRN Reason: Pain (Moderate) Stop: 08/16/17 19:12 Last Admin: 06/18/17 21:33 Dose: 1 tab Ascorbic Acid (Vitamin C) 500 mg PO DAILY [facility] Stop: 08/17/17 08:59 Last Admin: 06/19/17 08:50 Dose: 500 mg Ferrous Sulfate (Iron) 325 mg PO DAILY [facility] Stop: 08/17/17 08:59 Last Admin: 06/19/17 08:50 Dose: 325 mg Ceftriaxone Sodium 1 gm/ (Dextrose) 50 mls @ 100 mls/hr IV Q24HR [facility] PRN Reason: Protocol Stop: 08/17/17 20:59 Last Infusion: 06/19/17 21:11 Dose: Infused Azithromycin 500 mg/ Dextrose 250 mls @ 250 mls/hr IV Q24HR [facility] Stop: 08/17/17 20:59 Last Admin: 06/19/17 21:10 Dose: 250 mls/hr Lactulose (Cephulac) 10 gm PO BID ON[facility] Stop: 08/17/17 08:59 Last Admin: 06/19/17 17:07 Dose: Not Given Lorazepam (Ativan) 0.5 mg PO BID ON[facility]IA PRN Reason: Protocol Stop: 08/17/17 08:59 Last Admin: 06/19/17 17:07 Dose: 0.5 mg Miscellaneous (Ledipasvir/Sofosbuvir [Harvoni 90-400 Mg Tablet]) 1 each PO DAILY [facility] Stop: 08/17/17 08:59 Miscellaneous (Vte Chemical Prophylaxis Screen/ Admission) 1 ea [facility] PRN PRN PRN Reason: PROTOCOL Stop: 08/17/17 12:29 Pantoprazole Sodium (Protonix) 20 mg PO DAILY [facility] Stop: 08/17/17 08:59 Last Admin: 06/19/17 08:51 Dose: 20 mg Spironolactone (Aldactone) 25 mg PO BID [facility] Stop: 08/16/17 22:44 Last Admin: 06/19/17 17:07 Dose: Not Given Temazepam (Restoril) 7.5 mg PO HS PRN PRN Reason: Insomnia Last Admin: 06/19/17 02:34 Dose: 7.5 mg General: alert HEENT: NC/AT, PERRLA Neck: Supple Lungs: CTAB Extremities: excoriation Neurological: no change - Procedures Procedures: Procedures Procedure Code Date ABD PARACENTESIS W/IMAGING 40989 06/17/17 DRAINAGE OF PERITONEAL CAVITY, PERCUTANEOUS APPROACH [id number] 06/17/17 Internal Medicine Assmt/Plan - Assessment Assessment: Abdominal pain (Acute) R10.9 Ascites (Acute) R18.8 Cirrhosis of liver (Acute) Dehydration (Acute) E86.0 Hyponatremia (Acute) E87.1 UTI (urinary tract infection) (Acute) - Plan Plan: ivf for hydration follow up labs continue current orders
[2017-06-20 06:38] LABS: EOSINOPHILE ABSOLUTE 0.1 Th/cmm (0.1-0.4); HEMATOCRIT 27.4 % (41.0-60); HEMOGLOBIN 9.3 gm/dL (12-16); LYMPHOCYTE ABSOLUTE 1.1 Th/cmm (1.5-3.0); MEAN CELL VOLUME 100.4 fl (81-100); MEAN CORPUSCULAR HEMOGLOBIN 34.2 pg (27.0-31.0); MEAN CORPUSCULAR HGB CONC 34.1 pg (28.0-36.0); MEAN PLATELET VOLUME 6.8 fl; MONOCYTE ABSOLUTE 1.8 Th/cmm (0.3-1.0); NEUTROPHILE ABSOLUTE 6.8 Th/cmm (1.8-8.0); PLATELET COUNT 161 Th/cmm (150-400); RED BLOOD COUNT 2.73 Mil/cmm (3.80-5.20); RED CELL DISTRIBUTION WIDTH 23.4 % (11.5-20.0)
[2017-06-20 06:46] LABS: WHITE BLOOD COUNT 9.8 Th/cmm (4.8-10.8)
[2017-06-20 07:03] LABS: ALB/GLOB RATIO 0.5 (1.0-1.8); ALBUMIN 1.9 gm/dL (3.7-5.3); ALKALINE PHOSPHATASE 74 U/L (34-104); ANION GAP 8.5 (7.0-16.0); BILIRUBIN,TOTAL 1.6 mg/dL (0.3-1.0); BUN - UREA NITROGEN 38 mg/dL (7-25); CALCIUM SERUM 7.9 mg/dL (8.6-10.3); CARBON DIOXIDE 25.9 mEq/L (21.0-31.0); CHLORIDE 93 mEq/L (98-107); CREATININE - SERUM 0.7 mg/dL (0.6-1.2); GFR AFRICAN-AMERICAN > 60.0 ml/min (>90); GFR NON AFRICAN-AMERICAN > 60.0 ml/min; GLUCOSE 97 mg/dL (70-105); MAGNESIUM 2.6 mg/dL (1.9-2.7); POTASSIUM SERUM 4.4 mEq/L (3.5-5.1); SGOT 32 U/L (13-39); SGPT/ALT 22 U/L (7-52); SODIUM SERUM 123 mEq/L (136-145); TOTAL PROTEIN,SERUM 6.1 gm/dL (6.0-8.3)
[2017-06-20] MEDS: Pantoprazole 40 mg EC Tab PO SCH (08:20)
[2017-06-20] MEDS: Ferrous Sulfate 325 MG TAB PO SCH (08:21)
[2017-06-20] MEDS: Lactulose 10 Gm/15 mL 30mL UDC PO SCH ×2 (08:21→16:07)
--- NOTE | 2017-06-20 12:00 | Internal Medicine Prog Note ---
Internal Medicine Subjective - Subjective Service Date: 06/20/17 (paracentesis today) Patient seen and examined:: with staff Patient is:: awake Per staff patient has:: no adverse event, tolerating meds Internal Medicine Objective - Results Result Diagrams: 06/20/17 06:10 06/20/17 06:10 Recent Labs: Laboratory Last Values WBC 9.8 Th/cmm (4.8-10.8) D 06/20/17 06:10 RBC 2.73 Mil/cmm (3.80-5.20) L 06/20/17 06:10 Hgb 9.3 gm/dL (12-16) L 06/20/17 06:10 Hct 27.4 % (41.0-60) L 06/20/17 06:10 MCV 100.4 fl (81-100) H 06/20/17 06:10 MCH 34.2 pg (27.0-31.0) H 06/20/17 06:10 MCHC Differential 34.1 pg (28.0-36.0) 06/20/17 06:10 RDW 23.4 % (11.5-20.0) H 06/20/17 06:10 Plt Count 161 Th/cmm (150-400) 06/20/17 06:10 MPV 6.8 fl 06/20/17 06:10 Neutrophils % 77.7 % (40.0-80.0) 06/17/17 13:45 Band Neutrophils % 2 % (0-10) 06/18/17 05:30 Lymphocytes % 8.8 % (20.0-50.0) L 06/17/17 13:45 Monocytes % 12.6 % (2.0-10.0) H 06/17/17 13:45 Eosinophils % 0.7 % (0.0-5.0) 06/17/17 13:45 Basophils % 0.2 % (0.0-2.0) 06/17/17 13:45 Neutrophils (Manual) 76 % (40-80) 06/18/17 05:30 Lymphocytes 13 % (20-50) L 06/18/17 05:30 Monocytes 9 % (2-10) 06/18/17 05:30 Anisocytosis 1+ 06/18/17 05:30 PT 12.1 SECONDS (9.5-11.5) H 06/18/17 05:30 INR 1.15 (0.5-1.4) 06/18/17 05:30 PTT (Actin FS) 28.9 SECONDS (26.0-38.0) 06/18/17 05:30 Sodium 123 mEq/L (136-145) L 06/20/17 06:10 Potassium 4.4 mEq/L (3.5-5.1) 06/20/17 06:10 Chloride 93 mEq/L (98-107) L 06/20/17 06:10 Carbon Dioxide 25.9 mEq/L (21.0-31.0) 06/20/17 06:10 Anion Gap 8.5 (7.0-16.0) 06/20/17 06:10 BUN 38 mg/dL (7-25) H 06/20/17 06:10 Creatinine 0.7 mg/dL (0.6-1.2) 06/20/17 06:10 Est GFR ( Amer) > 60.0 ml/min (>90) 06/20/17 06:10 Est GFR (Non-Af Amer) > 60.0 ml/min 06/20/17 06:10 BUN/Creatinine Ratio 54.3 06/20/17 06:10 Glucose 97 mg/dL (70-105) 06/20/17 06:10 Uric Acid 10.2 mg/dL (2.3-6.6) H 06/19/17 06:05 Calcium 7.9 mg/dL (8.6-10.3) L 06/20/17 06:10 Magnesium 2.6 mg/dL (1.9-2.7) 06/20/17 06:10 Total Bilirubin 1.6 mg/dL (0.3-1.0) H 06/20/17 06:10 AST 32 U/L (13-39) 06/20/17 06:10 ALT 22 U/L (7-52) 06/20/17 06:10 Alkaline Phosphatase 74 U/L (34-104) 06/20/17 06:10 Ammonia 72 umol/L (16-53) H 06/18/17 05:30 Creatine Kinase 77 U/L (30-223) 06/17/17 13:45 Troponin I 0.01 ng/mL (0.01-0.05) 06/17/17 13:45 B-Natriuretic Peptide 49.9 pg/mL (5.0-100.0) 06/17/17 13:45 Total Protein 6.1 gm/dL (6.0-8.3) 06/20/17 06:10 Albumin 1.9 gm/dL (3.7-5.3) L 06/20/17 06:10 Globulin 4.2 gm/dL 06/20/17 06:10 Albumin/Globulin Ratio 0.5 (1.0-1.8) L 06/20/17 06:10 Triglycerides 50 mg/dL (<150) 06/17/17 13:45 Cholesterol 105 mg/dL (<200) 06/17/17 13:45 LDL Cholesterol Direct 64 mg/dL (75-193) L 06/17/17 13:45 HDL Cholesterol 38 mg/dL (23-92) 06/17/17 13:45 Amylase 78 U/L (29-103) 06/17/17 13:45 Serum , Qual NEGATIVE (NEGATIVE) 06/17/17 13:45 Urine Source CLEAN C 06/17/17 14:05 Urine Color ORANGE 06/17/17 14:05 Urine Clarity HAZY (CLEAR) 06/17/17 14:05 Urine pH 6.0 (4.6 - 8.0) 06/17/17 14:05 Ur Specific [place] 1.015 (1.005-1.030) 06/17/17 14:05 Urine Protein NEGATIVE mg/dL (NEGATIVE) 06/17/17 14:05 Urine Glucose (UA) NEGATIVE mg/dL (NEGATIVE) 06/17/17 14:05 Urine Ketones NEGATIVE mg/dL (NEGATIVE) 06/17/17 14:05 Urine Blood MODERATE (NEGATIVE) H 06/17/17 14:05 Urine Nitrate NEGATIVE (NEGATIVE) 06/17/17 14:05 Urine Bilirubin NEGATIVE (NEGATIVE) 06/17/17 14:05 Urine Urobilinogen 0.2 E.U./dL (0.2 - 1.0) 06/17/17 14:05 Ur Leukocyte Esterase NEGATIVE (NEGATIVE) 06/17/17 14:05 Urine RBC 5-10 /hpf (0-5) H 06/17/17 14:05 Urine WBC 6-10 /hpf (0-5) H 06/17/17 14:05 Ur Epithelial Cells MODERATE /lpf (FEW) 06/17/17 14:05 Urine Bacteria 1+ /hpf (NONE SEEN) H 06/17/17 14:05 Urine Test NEGATIVE 06/17/17 14:05 Fluid Source ASCITIC 06/18/17 10:45 Fluid Color YELLOW 06/18/17 10:45 Fluid Appearance HAZY 06/18/17 10:45 Fluid WBC 4.4 /cumm 06/18/17 10:45 Fluid RBC 2187 /cumm 06/18/17 10:45 Fluid Neutrophils 46 % 06/18/17 10:45 Fluid Lymphocytes 43 % 06/18/17 10:45 Fluid Monocytes 11 % 06/18/17 10:45 Fluid Glucose 110.0 mg/dL 06/18/17 10:45 Fluid Total Protein < 3.0 g/dL 06/18/17 10:45 Fluid LDH 36 U/L 06/18/17 10:45 - Physical Exam Vitals and I&O: Vital Signs Temp 97.2 F 06/20/17 10:00 Pulse 81 06/20/17 10:00 Resp 18 06/20/17 10:00 BP 103/56 06/20/17 10:00 Pulse Ox 97 06/20/17 10:00 Intake & Output 06/19/17 06/20/17 06/20/17 18:59 06:59 18:59 Intake Total 750 400 Balance 750 400 Weight (lbs) 125 lb 4 oz 129 lb 7 oz Intake: Intake, IV Amount 300 Azithromycin 500 mg In 250 Dextrose 5% 250 ml @ 250 mls/hr IV Q24HR [facility] [place] Rx#: [id number] cefTRIAXone 1 gm In 50 Dextrose 5% 50 ml @ 100 mls/hr IV Q24HR [facility] [place] Rx#: [id number] Oral 750 100 Other: # Voids 3 3 # Bowel Movements 0 0 Active Medications: Current Medications Acetaminophen/Hydrocodone Bitart ([place] 5mg/325mg) 1 tab PO TID PRN PRN Reason: Pain (Moderate) Stop: 08/16/17 19:12 Last Admin: 06/18/17 21:33 Dose: 1 tab Ascorbic Acid (Vitamin C) 500 mg PO DAILY [facility] Stop: 08/17/17 08:59 Last Admin: 06/20/17 08:20 Dose: 500 mg Ferrous Sulfate (Iron) 325 mg PO DAILY [facility] [place] Stop: 08/17/17 08:59 Last Admin: 06/20/17 08:21 Dose: 325 mg Ceftriaxone Sodium 1 gm/ (Dextrose) 50 mls @ 100 mls/hr IV Q24HR [facility] PRN Reason: Protocol Stop: 08/17/17 20:59 Last Infusion: 06/19/17 21:11 Dose: Infused Azithromycin 500 mg/ Dextrose 250 mls @ 250 mls/hr IV Q24HR [facility] Stop: 08/17/17 20:59 Last Infusion: 06/19/17 22:09 Dose: Infused Lactulose (Cephulac) 10 gm PO BID [facility] Stop: 08/17/17 08:59 Last Admin: 06/20/17 08:21 Dose: 10 gm Lorazepam (Ativan) 0.5 mg PO BID [facility] PRN Reason: Protocol Stop: 08/17/17 08:59 Last Admin: 06/20/17 08:20 Dose: 0.5 mg Miscellaneous (Ledipasvir/Sofosbuvir [Harvoni 90-400 Mg Tablet]) 1 each PO DAILY [facility] Stop: 08/17/17 08:59 Miscellaneous (Vte Chemical Prophylaxis Screen/ Admission) 1 ea [facility] PRN PRN PRN Reason: PROTOCOL Stop: 08/17/17 12:29 Pantoprazole Sodium (Protonix) 20 mg PO DAILY [facility] Stop: 08/17/17 08:59 Last Admin: 06/20/17 08:20 Dose: 20 mg Spironolactone (Aldactone) 25 mg PO BID [facility] Stop: 08/16/17 22:44 Last Admin: 06/20/17 08:20 Dose: Not Given Temazepam (Restoril) 7.5 mg PO HS PRN PRN Reason: Insomnia Last Admin: 06/19/17 02:34 Dose: 7.5 mg General: alert HEENT: NC/AT, PERRLA Neck: Supple Lungs: CTAB Extremities: excoriation Neurological: no change - Procedures Procedures: Procedures Procedure Code Date ABD PARACENTESIS W/IMAGING 03164 06/17/17 DRAINAGE OF PERITONEAL CAVITY, PERCUTANEOUS APPROACH [id number] 06/17/17 Internal Medicine Assmt/Plan - Assessment Assessment: Abdominal pain (Acute) R10.9 Ascites (Acute) R18.8 Cirrhosis of liver (Acute) Dehydration (Acute) E86.0 Hyponatremia (Acute) E87.1 UTI (urinary tract infection) (Acute) - Plan Plan: ivf for hydration follow up labs continue current orders
[2017-06-20] MEDS: Hydrocodone/APAP 5mg/325mg Tab PO PRN (20:13)
[2017-06-20] MEDS: Azithromycin 500 mg in 0.9% NS 250 mL IV SCH (23:06)
[2017-06-21 06:13] LABS: EOSINOPHILE ABSOLUTE 0.1 Th/cmm (0.1-0.4); HEMATOCRIT 27.5 % (41.0-60); HEMOGLOBIN 9.3 gm/dL (12-16); LYMPHOCYTE ABSOLUTE 0.9 Th/cmm (1.5-3.0); MEAN CELL VOLUME 102.7 fl (81-100); MEAN CORPUSCULAR HEMOGLOBIN 34.7 pg (27.0-31.0); MEAN CORPUSCULAR HGB CONC 33.8 pg (28.0-36.0); MEAN PLATELET VOLUME 7.1 fl; MONOCYTE ABSOLUTE 1.7 Th/cmm (0.3-1.0); NEUTROPHILE ABSOLUTE 6.8 Th/cmm (1.8-8.0); PLATELET COUNT 158 Th/cmm (150-400); RED BLOOD COUNT 2.68 Mil/cmm (3.80-5.20); RED CELL DISTRIBUTION WIDTH 23.6 % (11.5-20.0); WHITE BLOOD COUNT 9.5 Th/cmm (4.8-10.8)
[2017-06-21 06:23] LABS: ANION GAP 8.1 (7.0-16.0); BUN - UREA NITROGEN 43 mg/dL (7-25); CALCIUM SERUM 7.9 mg/dL (8.6-10.3); CARBON DIOXIDE 27.4 mEq/L (21.0-31.0); CHLORIDE 89 mEq/L (98-107); CREATININE - SERUM 0.8 mg/dL (0.6-1.2); GFR AFRICAN-AMERICAN > 60.0 ml/min (>90); GFR NON AFRICAN-AMERICAN > 60.0 ml/min; GLUCOSE 102 mg/dL (70-105); POTASSIUM SERUM 4.5 mEq/L (3.5-5.1)
[2017-06-21 06:30] LABS: SODIUM SERUM 120 mEq/L (136-145)
[2017-06-21] MEDS: Lactulose 10 Gm/15 mL 30mL UDC PO SCH ×2 (08:25→16:40)
[2017-06-21] MEDS: Pantoprazole 40 mg EC Tab PO SCH (08:26)
[2017-06-21] MEDS: Ferrous Sulfate 325 MG TAB PO SCH (08:26)
[2017-06-21] MEDS ORDERED: Sodium Chloride 3% 200 ML IV ONE (10:39)
[2017-06-21] MEDS ORDERED: Azithromycin 500 MG in Sodium Chloride 0.9% 250 ML IV SCH ×2 (11:02→21:00)
--- NOTE | 2017-06-22 01:20 | Consultation ---
DATE OF CONSULTATION: 06/18/2017 TIME: 09:30 p.m. REQUESTING PHYSICIAN: Dr. Baker. REASON FOR EVALUATION: Electrolyte and metabolic problems and management. HISTORY OF PRESENT ILLNESS: This patient apparently "had some liver problem and ascites," for which the patient had a recent paracentesis somewhere else and was transferred here. On direct questioning, the patient seems to be a little bit forgetful, otherwise seems to be awake and alert. The patient is able to give somewhat history. The patient stated that she lived in [place] in the past. and had children. The patient has smoked cigarettes for many, many years, but no alcohol. Further history, the patient does not remember too much about herself. PHYSICAL EXAMINATION: GENERAL: The patient's clinical evaluation reveals the patient to be conscious. SKIN: Essentially normal. Some areas of some little dilated veins or angioma. NECK: Jugular venous pressure clinically is not raised. Oropharynx is clear. The patient is able to follow some commands. Cranial nerves seem to be intact. CHEST: Reveals good air entry in the upper lung roldan. Breath sounds are diminished in the base. ABDOMEN: Somewhat distended. There seems to be evidence of ascites on clinical examination. Liver margin not palpable. LOWER EXTREMITIES: Reveal about trace edema, not any significant at the present time. Muscle mass and tissue seems to be reduced at the present time on clinical examination. BIOCHEMICAL DATA: Significant for hemoglobin 9.9 grams percent, WBC count 2.95 and platelet count 166. Urine grew 100,000 gram-negative rods. Urinalysis essentially negative, leukocyte esterase negative. Other chemistries revealed hemoglobin 9.9 grams percent with WBC count 7.9 thousand repeat. Protime (PT) is 12.1, INR 1.15 and PTT 28.9. Sodium 121, potassium 4.2, chloride 88, CO2 content 28.7, BUN 45, creatinine 0.9. Ammonia level done earlier was elevated, which was 72. ASSESSMENT: Considering that the impression which gives that patient has liver disease with probably cirrhosis and ascites, etiology not clear, but patient stated she was taking harvoni, so she must have had a hepatitis C, for which she might have been being treated. The patient has elevated ammonia and that would the cause of a little confusion. The patient also has a significant hyponatremia, moderately severe liver dysfunction suggested by the increased ammonia level and low albumin. There is also increased bilirubin. Therefore, at present to correct the sodium would suggest holding off on the Lasix. Also, holding of some of the other medications if possible. In addition to that put on Aldactone, so as to avoid any hypokalemia. Plan on this is not known as such. Also, would suggest water restriction and probably give a little more increased salt in the diet so as to correct the electrolyte problem. Also, would check a uric acid level. If it is low, then it may be suggestive of patient may have in addition some syndrome of inappropriate ADH. JOB# [id number]
--- NOTE | 2017-06-22 17:55 | Progress Notes ---
DATE: 06/21/2017 SUBJECTIVE: The patient was seen in her home room lying in a bed. The patient appears to be comfortable in no acute distress. Denies any pain or discomfort at this time. OBJECTIVE: GENERAL: The patient is awake, alert, and oriented x 4. VITAL SIGNS: Temperature 98.3, heart rate 86, blood pressure 104/65, respirations 18, 97% on room air. HEENT: Head is atraumatic and normocephalic. Eyes: Bilateral conjunctivae are clear. Bilateral pupils are equally round and reactive. NECK: Supple. No JVD. CARDIOVASCULAR: S1 and S2, without murmur. PULMONARY: Clear to auscultation. GASTROINTESTINAL: Soft and nontender without guarding. Abdomen distended. MUSCULOSKELETAL: No clubbing, no cyanosis noted. ASSESSMENT: 1. Tuberculosis. 2. Arthritis. 3. Dehydration. 4. Hyponatremia. 5. Genital infection. 6. Abdominal pain. PLAN: The patient reports pending discharge going back to [facility] from [facility]. Dr. Baker will continue to monitor. Medication reconciliation will be done accordingly. Treatment plans were discussed with the patient and nurse. Treatment plans were discussed with Dr. Baker. JOB# [id number]
--- NOTE | 2017-07-21 13:12 | Discharge Summary ---
DATE OF DISCHARGE: 06/21/2017 HOSPITAL COURSE: This patient came to the Emergency Room, admitted on 06/17/2017 and discharged on 06/21/2017. The patient has severe hyponatremia, cirrhosis of the liver, ascites, dehydration, UTI, and abdominal pain and the patient was treated, had both ID doctor as well as dye padder operator and GI consultation. The patient improved and the patient was in stable condition on 06/21/2017. The patient was discharged back to [facility] where her doctor is going to be following the patient. THE PATIENT'S CONDITION AT THE TIME OF DISCHARGE: Stable. MEDICATIONS: See the reconciliation sheet. ACTIVITY: As tolerated. DIET: As per order sheet. [facility]# [id number]
== END 2017-06-21 20:27 | disposition home or self-care (01) | DRG 441 ==
LOC: ER 12:48 → TELE 15:20
PROVIDERS: ADMIT Internal Medicine; ATTEND Internal Medicine
PROC: 0W9G3ZZ Drainage of Peritoneal Cavity, Percutaneous Approach (ICD-10-PCS; principal; 2017-06-18)
DX: K72.00 Acute and subacute hepatic failure without coma (principal); E41 Nutritional marasmus; R18.8 Other ascites; E87.1 Hypo-osmolality and hyponatremia; K74.60 Unspecified cirrhosis of liver; A15.9 Respiratory tuberculosis unspecified; E86.0 Dehydration; N39.0 Urinary tract infection, site not specified; N73.9 Female pelvic inflammatory disease, unspecified; M19.90 Unspecified osteoarthritis, unspecified site; K21.9 Gastro-esophageal reflux disease without esophagitis; B19.20 Unspecified viral hepatitis C without hepatic coma; K76.89 Other specified diseases of liver; Z82.49 Family history of ischemic heart disease and other diseases of the circulatory system; Z68.23 Body mass index [BMI] 23.0-23.9, adult
CPT/HCPCS: 36415-UA; 71010-TC; 76700-TC; 76942-TC; 80048-TC; 80053-TC; 80061-TC; 81001-TC; 81025-TC; 82140-TC; 82150-TC; 82550-TC; 82945-TC; 83615-TC; 83735-TC; 83880-TC; 84157-TC; 84295-TC; 84484-TC; 84550-TC; 84703-TC; 85007-TC; 85025-TC; 85027-TC; 85610-TC; 87070-90; 87075-90; 87086-90; 87205-90; 89051-TC; 90732; 93005; 94760; J0456; J0696; J2001; J3411; J3475; J7030; J7040; J7131; X6598; Z7610